=== PATIENT | female | born 1980 ===

== ENCOUNTER 2018-10-27 07:47 | Day surgery (SDC) | payer OTHER, SELFPAY ==
[~2018-10-27] VITALS: Ht 170.2 cm; Wt 89.8 kg
[~2018-10-27 07:47] MED LIST: HERBALIFE; MULVITMINE; NYQUIL; Omeprazole20 M1 PO; PSEU30 PO; SULTRIDS PO
--- NOTE | 2018-10-27 08:52 | NUR ---
10/27/18 0852 Ivis Andrew V 1 FAILED IV IN L HAND, 1 FAILED IV IN L FOREARM, 1 FAILED IVIN R HAND, IV SUCCESSFUL IN R HAND.
--- NOTE | 2018-10-27 09:52 | NUR ---
10/27/18 0952 Anu Mayes [facility] 220
--- NOTE | 2018-10-27 10:24 | NUR ---
10/27/18 1024 Peg Maciel PT INTO RECLINER TOLERATING PO INTAKE. PT DENIES PAIN AND NAUSEA. DESIRAE AT BEDSIDE. CELESTE PAD IN PLACE. CELESTE PAD CDI AT THIS TIME.
== END 2018-10-27 11:00 | disposition home or self-care (01) ==
LOC: ORSCSDS 07:47
PROVIDERS: Obstetrics & Gynecology
PROC: 0UPD8HZ Removal of Contraceptive Device from Uterus and Cervix, Via Natural or Artificial Opening Endoscopic (ICD-10-PCS; principal; 2018-10-27 09:00)
DX: T83.32XA Displacement of intrauterine contraceptive device, initial encounter (principal)
CPT/HCPCS: 88300; J0690; J1100; J1885; J2405; J3010; J7120

== ENCOUNTER → 2021-07-30 | Outpatient (CLI) | payer OTHER ==
[2021-08-03 15:09] LABS: HPV 16 Negative (Negative); HPV 18 Negative (Negative); HPV OTHER HR TYPES Negative (Negative)
== END ==
LOC: LAB 15:40 → LAB SHORT 15:40
PROVIDERS: Registered Nurse Community Health
DX: Z12.4 Encounter for screening for malignant neoplasm of cervix (principal)
CPT/HCPCS: 87624; G0123

== ENCOUNTER → 2024-08-06 | Outpatient (CLI) | payer OTHER ==
[2024-08-06 15:47] LABS: Creatinine Urine 78.9 mg/dL (27.00-270.00); Microalbumin, Urine Quant. 7.72 mg/L (0.000-20.000); Protein, Urine Quantitative 8.6 mg/dL (0.0-11.9)
== END | disposition home or self-care (01) ==
LOC: LAB 08:00 → LAB SHORT 08:00 → LAB FUT 07-26 13:15
PROVIDERS: Internal Medicine Nephrology
DX: N18.2 Chronic kidney disease, stage 2 (mild) (principal); D63.1 Anemia in chronic kidney disease; N25.81 Secondary hyperparathyroidism of renal origin; E55.9 Vitamin D deficiency, unspecified; R76.9 Abnormal immunological finding in serum, unspecified; R94.5 Abnormal results of liver function studies; R94.6 Abnormal results of thyroid function studies
CPT/HCPCS: 81050; 82043; 82570; 84156